=== PATIENT | female | born 1965 | race Hispanic/Latino ===

== ENCOUNTER 2018-09-24 12:04 | Emergency (ER) | payer OTHER ==
[2018-09-24] MEDS ORDERED: SODIUM CHLORIDE 0.9% 1000ML 1,000 ML IV ONE (12:31)
[2018-09-24] MEDS ORDERED: ONDANSETRON HCL 4 MG/2 ML VIAL ONE (12:31)
[2018-09-24] MEDS ORDERED: KETOROLAC TROMETHAMINE 30MG/ML ONE (12:32)
[2018-09-24] MEDS ORDERED: MORPHINE SULFATE 2 MG/ML 1ML SYG ONE (12:32)
[2018-09-24 12:44] LABS: BASOPHILS % (AUTO) 0.3 % (0.0-5.0); EOSINOPHILS % (AUTO) 0.2 % (0.0-8.0); HEMATOCRIT 39.2 % (36-48); MEAN CORPUSCULAR HEMOGLOBIN 29.3 pg (27.0-33.0); MEAN CORPUSCULAR HGB CONC 33.5 g/dL (32.0-36.0); MEAN CORPUSCULAR VOLUME 87.5 fL (79-99); MONOCYTES % (AUTO) 4.7 % (3.0-13.0); NEUTROPHILS % (AUTO) 72.8 % (40.0-77.0); PLATELET COUNT (AUTO) 222 K/uL (130-400); RED BLOOD CELL COUNT(AUTO) 4.47 MIL/uL (4.00-5.50); RED CELL DISTRIBUTION WIDTH 13.4 % (11.0-15.5); WHITE BLOOD COUNT (AUTO) 8.1 K/uL (4.8-10.8)
[2018-09-24 12:46] LABS: APPEARANCE,URINE Clear (CLEAR); BILIRUBIN,URINE Negative (NEGATIVE); COLOR,URINE Yellow (YELLOW); GLUCOSE, URINE (UA) Negative (NEGATIVE); KETONES,URINE 40 mg/dL (NEGATIVE); LEUKOCYTE ESTERASE ,URINE Negative (NEGATIVE); NITRATE,URINE Negative (NEGATIVE); OCCULT BLOOD,URINE Negative (NEGATIVE); PH,URINE 6.5 (5.0-8.0); PROTEIN,URINE Trace (NEGATIVE)
[2018-09-24 12:51] LABS: CREATININE 0.6 mg/dL (0.5-1.5); POTASSIUM 3.8 mmol/L (3.5-5.1)
[2018-09-24 12:59] LABS: ALBUMIN 4.2 g/dL (3.5-5.0); BILIRUBIN,TOTAL 0.4 mg/dL (0.2-1.0); TOTAL PROTEIN, SERUM 8.2 g/dL (6.0-8.3)
[2018-09-24 12:59] LABS: BACTERIA,URINE Rare /HPF (None Seen); RBC,URINE 0-1 /HPF (0-1); SQUAMOUS EPITHELIAL CELL,UR Rare /HPF (0-2)
[2018-09-24] MEDS ORDERED: MEPERIDINE-PF 50 MG/ML SYG ONE (13:08)
[2018-09-24] MEDS ORDERED: IOHEXOL-350 75 ML VIAL IV ONE (14:03)
[2018-09-24] MEDS ORDERED: DiphenhydrAMINE HCL 50 MG/ML VIAL ONE (14:31)
[2018-09-24] MEDS ORDERED: ACETAMINOPHEN EXTRA STRENGTH 500 MG TABLET ONE (16:30)
[2018-09-24] MEDS ORDERED: LEVOFLOXACIN 500 MG/D5W 100 ML 100 ML ONE (17:16)
[2018-09-24 17:24] LABS: INR 0.93 (0.85-1.15); PARTIAL THROMBOPLASTIN TIME 23.8 SEC (26.3-35.5); PROTHROMBIN TIME 9.8 SEC (9.6-11.6)
[2018-09-24 17:44] LABS: CREATINE KINASE, TOTAL 44 U/L (21-232); MYOGLOBIN 20 ng/mL (10-92); TROPONIN I < 0.04 ng/mL (0.00-0.06)
== END 2018-09-24 19:21 | disposition home or self-care (01) ==
LOC: EDH 12:04
DX: K81.9 Cholecystitis, unspecified (principal); R10.11 Right upper quadrant pain
CPT/HCPCS: 36415; 71045; 74177; 76705; 80053; 81001; 82550; 83605; 83690; 83874; 84484; 85025; 85610; 85730; 87040; 87804 ×2; 96361; 96365; 96366; 96375; 99284; J1200; J1885; J1956; J2175; J2405; J7030; Q9967

== ENCOUNTER 2024-03-19 18:07 | Emergency (ER) | payer BC ==
[~2024-03-19] VITALS: Ht 157.5 cm; Wt 65.8 kg
[2024-03-19] MEDS: ACETAMINOPHEN 325 MG TAB PO ONE (18:38)
[2024-03-19 18:48] LABS: RAPID GROUP A STREP negative (NEGATIVE)
[2024-03-19 19:02] LABS: INFLUENZA TYPE A Negative For Type A (NEGATIVE); INFLUENZA TYPE B Negative For Type B (NEGATIVE)
[2024-03-19 19:15] VITALS: TEMP 98.4
[2024-03-19 19:22] LABS: COVID19 (SARS ANTIGEN RAPID) POSITIVE FOR SARS AG (NEGATIVE)
[2024-03-19] MEDS ORDERED: MOLN200C PO (19:41)
[2024-03-19 19:51] VITALS: BP 151/84; PULSE 98; RESP 18; O2SAT 98
== END 2024-03-19 21:56 | disposition home or self-care (01) ==
LOC: EDH 18:07
DX: U07.1 COVID-19 (principal); I10 Essential (primary) hypertension; Z79.899 Other long term (current) drug therapy; Z98.890 Other specified postprocedural states
CPT/HCPCS: 87426; 87804; 87880

== ENCOUNTER 2024-06-16 05:10 | Emergency (ER) | payer BC ==
[~2024-06-16 05:10] MED LIST: MOLN200C PO
--- NOTE | 2024-06-16 05:53 | ERN ---
General Chief Complaint: Abdominal Pain Stated Complaint: ABDOMINAL PAIN, DIARRHEA Time Seen by MD: 05:15 History of Present Illness Initial Comments Ms. Chung is a very pleasant 59-year-old female comes in with a history of abdominal pain. Patient reports she has been not been able to keep anything down. Patient has a history of CIDP. She has been having associated fevers and chills as well as diarrhea Allergies: Coded Allergies: No Known Drug Allergies (Unverified Allergy, Unknown, 03/19/24) Home Meds Active Scripts Molnupiravir (Molnupiravir (Eua)) 200 Mg Capsule, 200 MG PO QID for 5 Days, #40 CAP Prov:MARIAH MEADOWS 03/19/24 Past Medical History Past Medical History: Hypertension Medical History Other: CIDP (CHRONIC INFLAMMATORY DEMYELINATING POLYNEUROPATHY) Past Surgical History: Other ROS Dictation Constitutional: Negative for fever,chills, and weight loss Eyes: Negative for injury, pain,redness, and discharge ENT: Negative for injury,pain or swelling Cardiovascular: Negative for chest pain, palpitations, and edema Respiratory: Negative for shortness of breath, cough, and wheezing, Abdomen/GI: Positive for abdominal pain, nausea, vomiting, diarrhea Back: Negative for injury and pain : Negative for injury, bleeding and discharge MS/Extremity: Negative for injury and deformity Skin: Negative for rash, and discoloration Neuro: Negative for headache, weakness, numbness, tingling, and seizure Psych: Negative for suicide ideation, homicidal ideation, and hallucinations Physical Exam Physical Exam Dictation General: awake, alert, NAD Head/Face: Normocephalic, atraumatic Eyes: PERRL, EOMI, vision at baseline ENT: oral cavity clear, TMs clear, no signs of infection Neck: Trachea midline, supple, no nuchal rigidity Cardiovascular: RRR, normal S1/S2, No MRGs, no JVD Respiratory: Generalized pain with palpation Abdomen: Soft, non-tender, non-distended, normal bowel sounds, no guarding or rebound. Skin: Warm, dry, normal turgor, no rash MS/Extremity: Trace edema Results Laboratory and Microbiology Lab and Micro Result Laboratory Tests Test 06/16/24 05:47 06/16/24 05:52 Urine Color LIGHT-YELLOW (YELLOW) Urine Appearance CLOUDY (CLEAR) H Urine pH 7.5 (5.0-8.0) Urine Specific [place] 1.013 (1.001-1.031) Urine Protein NEGATIVE mg/dL (NEGATIVE) Urine Glucose (UA) NEGATIVE mg/dL (NEGATIVE) Urine Ketones 60 mg/dL (NEGATIVE) H Urine Occult Blood NEGATIVE (NEGATIVE) Urine Nitrate NEGATIVE (NEGATIVE) Urine Bilirubin NEGATIVE mg/dL (NEGATIVE) Urine Urobilinogen 0.2 mg/dL (0.2-1.0) Urine Leukocyte Esterase NEGATIVE Garo/uL Urine RBC 0-1 /HPF (0-1) Urine WBC 0-1 /HPF (0-1) Urine Amorphous Crystals (Auto) Moderate /LPF (None Seen) H Urine Bacteria RARE /HPF (None Seen) White Blood Count 10.5 K/uL (4.8-10.8) Red Blood Count 4.75 MIL/uL (4.00-5.50) Hemoglobin 13.9 g/dL (12.0-16.0) Hematocrit 42.0 % (36-48) Mean Corpuscular Volume 88.4 fL (79-99) Mean Corpuscular Hemoglobin 29.3 pg (27.0-33.0) Mean Corpuscular Hemoglobin Concent 33.1 g/dL (32.0-36.0) Red Cell Distribution Width 13.3 % (11.0-15.5) Platelet Count 268 K/uL (130-400) Mean Platelet Volume 10.4 fL (7.5-10.5) Immature Granulocyte % (Auto) 0.3 % (0-1) Neutrophils (%) (Auto) 83.8 % (40.0-77.0) H Lymphocytes (%) (Auto) 10.8 % (21.0-51.0) L Monocytes (%) (Auto) 4.2 % (3.0-13.0) Eosinophils (%) (Auto) 0.6 % (0.0-8.0) Basophils (%) (Auto) 0.3 % (0.0-5.0) Neutrophils # (Auto) 8.8 K/uL (1.8-7.7) H Lymphocytes # (Auto) 1.1 K/uL (1.0-4.8) Monocytes # (Auto) 0.4 K/uL (0.1-1.0) Eosinophils # (Auto) 0.06 K/uL (0.00-0.70) Basophils # (Auto) 0.03 K/uL (0.00-0.20) Absolute Immature Granulocyte (auto 0.03 K/uL (0-1) Nucleated Red Blood Cells 0.0 % (0.0-0.19) Sodium Level 140 mmol/L (136-145) Potassium Level 3.5 mmol/L (3.5-5.1) Chloride Level 103 mmol/L (101-111) Carbon Dioxide Level 27 mmol/L (21-32) Blood Urea Nitrogen 7 mg/dL (7-18) Creatinine 0.3 mg/dL (0.5-1.0) L Glomerular Filtration Rate Calc 123 mL/min (>90) Random Glucose 136 mg/dL (70-105) H Total Calcium 9.6 mg/dL (8.5-10.1) Total Bilirubin 0.5 mg/dL (0.2-1.0) Aspartate Amino Transf (AST/SGOT) 21 U/L (10-37) Alanine Aminotransferase (ALT/SGPT) 25 U/L (12-78) Alkaline Phosphatase 97 U/L (50-136) Total Protein 7.6 g/dL (6.0-8.3) Albumin 3.6 g/dL (3.5-5.0) Lipase 49 U/L (16-77) MDM MDM: Differential diagnosis: Gastritis, abdominal distention, GERD, viral gastroenteritis Patient is a 59-year-old female coming in to be evaluated for abdominal discomfort. Patient states that she felt bloating for two days she also has been having diarrhea laboratory workup and CT of the abdomen negative for acute findings. Patient will be discharged in stable condition with a diagnosis of viral gastroenteritis. I advised her appropriate follow up with PCP in 1-2 days to continue monitoring symptoms if any should present. ED Course Orders Procedure Category Date Status Time Lactated Ringers PHA 06/16/24 Complete 1000ml (Lactated 05:30 Morphine 4mg Syg PHA 06/16/24 Complete (Morphine 4mg Syg) 05:30 Ondansetron 4mg Inj PHA 06/16/24 Complete (Zofran 4mg Inj) 05:30 Mag/Alum/Simeth 30ml PHA 06/16/24 Complete (Maalox Plus 30ml) 05:30 Dicyclomine Hcl PHA 06/16/24 Complete (Bentyl 10mg/5ml 05:30 Comprehensive LAB 06/16/24 Complete Metabolic Panel 05:47 Lipase LAB 06/16/24 Complete 05:47 Cbc With Differential LAB 06/16/24 Complete 05:47 Urinalysis Profile LAB 06/16/24 Complete Catherized 05:52 Ct Abdomen/Pelvis CT 06/16/24 Resulted W/Contrast 07:11 Iohexol (Omnipaque) PHA 06/16/24 Complete 07:20 Current Medications Medications (Trade) Dose Ordered Sig/Joshua Route PRN Reason Start Time Stop Time Status Last Admin Dose Admin Al Hydroxide/Mg Hydroxide (MAALox PLUS 30ML) 30 ml ONCE ONCE PO 06/16/24 05:30 06/16/24 05:31 DC 06/16/24 06:26 Dicyclomine HCl (Bentyl 10mg/5ml Syrup) 10 mg ONCE ONCE PO 06/16/24 05:30 06/16/24 05:31 DC 06/16/24 06:26 Iohexol (Omnipaque) 35,000 mg STK-MED ONCE IV 06/16/24 07:20 06/16/24 07:21 DC Lactated Ringer's 1,000 ml @ 0 mls/hr ONCE ONCE IV 06/16/24 05:30 06/16/24 05:31 DC 06/16/24 06:26 Morphine Sulfate (morPHINE 4MG SYG) 4 mg ONCE ONCE IVP 06/16/24 05:30 06/16/24 05:31 DC 06/16/24 06:27 Ondansetron HCl (zoFRAN 4MG INJ) 4 mg ONCE ONCE IVP 06/16/24 05:30 06/16/24 05:31 DC 06/16/24 06:26 Vital Signs Date Time Temp Pulse Resp B/P (MAP) Pulse Ox O2 Delivery O2 Flow Rate FiO2 06/16/24 07:30 98.8 88 18 121/52 97 Room Air* 0 06/16/24 05:46 98.8 124 18 130/83 97 Room Air* 0 06/16/24 05:13 98.2 126 18 125/88 97 Room Air 0 DX & DISP Disposition: Discharge Departure Impression: Primary Impression: Viral gastroenteritis Additional Impression: Gastritis Condition: Stable Scripts Lactobacillus Acidophilus (Acidophilus Probiotic) 500 Million Cell Capsule 1 CAP PO DAILY for 30 Days, #30 CAP 0 Refills Prov: JON GARDNER MD 06/16/24 Pantoprazole Sodium (Protonix) 40 Mg Ectab 1 TAB PO DAILY for 30 Days, #30 TAB 0 Refills Prov: JON GARDNER MD 06/16/24 Additional Instructions: FOLLOW-UP WITH PRIMARY CARE PROVIDER IN 1 TO 2 DAYS. TAKE MEDICATIONS DIRECTED HERE IN THE EMERGENCY ROOM. OKAY TO CONTINUE HOME MEDICATIONS UNLESS OTHERWISE DISCUSSED DURING YOUR VISIT IN THE EMERGENCY ROOM TODAY. RETURN TO YOUR NEAREST EMERGENCY ROOM IF SYMPTOMS WORSEN OR IF THERE IS NO IMPROVEMENT. CALL 911 IF YOU NEED IMMEDIATE ASSISTANCE. TAKE TYLENOL [id number] NEEDED AND IF NO CONTRAINDICATIONS ARE PRESENT. INCREASE ORAL HYDRATION. A WOUND CULTURE OR URINE CULTURE WAS ORDERED HERE IN THE EMERGENCY ROOM DEPARTMENT PLEASE FOLLOW-UP WITH PRIMARY CARE PROVIDER AND ADVISE THEM TO GET REPEAT PORTS FROM OUR FACILITY. IF YOU HAD ANY TYLER WRAP/SPLINTS THAT WERE APPLIED HERE, PLEASE DO NOT REMOVE THEM UNTIL YOU SEE YOUR PRIMARY CARE OR SPECIALTY. Referrals: Referrals: SELF,REFERRAL (PCP) TRAVIS ALDANA MD Time of Disposition: 08:26 SYLVIA RUIZ MD Jun 16, 2024 05:53 JON GARDNER MD Jun 16, 2024 08:27
[2024-06-16 05:59] LABS: BASOPHILS # (AUTO) 0.03 K/uL (0.00-0.20); BASOPHILS % (AUTO) 0.3 % (0.0-5.0); EOSINOPHILS # (AUTO) 0.06 K/uL (0.00-0.70); EOSINOPHILS % (AUTO) 0.6 % (0.0-8.0); IMMATURE GRANULOCYTE ABSOLUTE 0.03 K/uL (0-1); LYMPHOCYTES # (AUTO) 1.1 K/uL (1.0-4.8); LYMPHOCYTES % (AUTO) 10.8 % (21.0-51.0); MEAN CORPUSCULAR HEMOGLOBIN 29.3 pg (27.0-33.0); MEAN CORPUSCULAR HGB CONC 33.1 g/dL (32.0-36.0); MEAN CORPUSCULAR VOLUME 88.4 fL (79-99); MONOCYTES # (AUTO) 0.4 K/uL (0.1-1.0); MONOCYTES % (AUTO) 4.2 % (3.0-13.0); NEUTROPHILS # (AUTO) 8.8 K/uL (1.8-7.7); NEUTROPHILS % (AUTO) 83.8 % (40.0-77.0); PLATELET COUNT (AUTO) 268 K/uL (130-400); RED BLOOD CELL COUNT(AUTO) 4.75 MIL/uL (4.00-5.50); RED CELL DISTRIBUTION WIDTH 13.3 % (11.0-15.5); WHITE BLOOD COUNT (AUTO) 10.5 K/uL (4.8-10.8)
[2024-06-16 06:06] LABS: APPEARANCE,URINE CLOUDY (CLEAR); BILIRUBIN,URINE NEGATIVE (NEGATIVE); COLOR,URINE LIGHT-YELLOW (YELLOW); GLUCOSE, URINE (UA) NEGATIVE (NEGATIVE); KETONES,URINE 60 mg/dL (NEGATIVE); LEUKOCYTE ESTERASE ,URINE NEGATIVE Leu/uL (NEGATIVE); NITRATE,URINE NEGATIVE (NEGATIVE); OCCULT BLOOD,URINE NEGATIVE (NEGATIVE); PH,URINE 7.5 (5.0-8.0); PROTEIN,URINE NEGATIVE (NEGATIVE); UROBILINOGEN,URINE 0.2 mg/dL (0.2-1.0)
[2024-06-16 06:08] LABS: ADD UA MICROSCOPIC YES
[2024-06-16 06:09] LABS: CREATININE 0.3 mg/dL (0.5-1.0); POTASSIUM 3.5 mmol/L (3.5-5.1)
[2024-06-16 06:14] LABS: ALBUMIN 3.6 g/dL (3.5-5.0); BILIRUBIN,TOTAL 0.5 mg/dL (0.2-1.0); TOTAL PROTEIN, SERUM 7.6 g/dL (6.0-8.3)
[2024-06-16] MEDS: ondanSETRON 4MG INJ IVP ONE (06:26)
[2024-06-16] MEDS: MAG/ALUM/SIMETH 30 ML UDCUP PO ONE (06:26)
[2024-06-16] MEDS: DICYCLOMINE HCL 10 MG/5 ML ML PO ONE (06:26)
[2024-06-16] MEDS: LACTATED RINGERS 1000ML 1,000 ML IV ONE (06:26)
[2024-06-16 06:27] LABS: BACTERIA,URINE RARE /HPF (None Seen); RBC,URINE 0-1 /HPF (0-1)
[2024-06-16] MEDS: morPHINE 4 MG SYG IVP ONE (06:27)
[2024-06-16 06:29] LABS: WBC,URINE 0-1 /HPF (0-1)
[2024-06-16] MEDS ORDERED: IOHEXOL 350 MG/ML 100ML INFUS..BTL IV ONE (07:20)
--- NOTE | 2024-06-16 08:17 | HMCIMG ---
CT ABDOMEN/PELVIS W/CONTRAST HISTORY: Abdominal pain COMPARISON: 09/24/2018 TECHNIQUE: Multiple sequential axial images of the abdomen and pelvis were obtained from the dome of the diaphragm through symphysis pubis. Patient was given 100 cc of Omnipaque through intravenous route. Oral contrast was not given. FINDINGS: No pleural effusion is seen bilaterally. There is no evidence of parenchymal disease or pulmonary nodule of the visualized lower lungs. Degenerative changes of the thoracolumbar spine are present. The heart is not enlarged. Liver measured 14.3 cm. Gastric distention is seen. The liver, spleen, adrenal glands and pancreas are unremarkable. There is no evidence of hydronephrosis bilaterally. No evidence of renal stone is seen. Fecal material is seen in the colon. There is diverticulosis. No bowel obstruction is seen. There are normal size retroperitoneal and mesenteric lymph nodes. No ascites is seen. No CT evidence of acute appendicitis is seen. Pelvic sidewalls are symmetric bilaterally. Bladder is well distended without wall thickening. IMPRESSION: 1. Diverticulosis. No ascites. CT was performed with one or more following dose reduction techniques: automated exposure control, adjustment of the mA and kv according to patient's size, or use of a iterative reconstruction technique.
[2024-06-16] MEDS ORDERED: PANT40TA55 PO (08:27)
[2024-06-16] MEDS ORDERED: LACT-356 PO (08:27)
[2024-06-16 10:54] VITALS: BP 118/56; PULSE 84; RESP 18; TEMP 98.8; O2SAT 97
[2024-06-16] MEDS ORDERED: ondanSETRON 4MG INJ ONE (11:24)
[2024-06-16] MEDS ORDERED: morPHINE 4 MG SYG ONE (11:25)
== END 2024-06-16 12:37 | disposition home or self-care (01) ==
LOC: EDH 05:10
DX: A08.4 Viral intestinal infection, unspecified (principal); K29.70 Gastritis, unspecified, without bleeding; I10 Essential (primary) hypertension; Z79.899 Other long term (current) drug therapy
CPT/HCPCS: 99284; 74177; 96374; 96375; 80053; 83690; 85025; 81001; 36415; J7120; J2405 ×2; J2270 ×2; Q9967